=== PATIENT | male | born 1985 | race Caucasian/White ===

== ENCOUNTER 2022-10-14 23:47 | Emergency (ER) | payer BC ==
[2022-10-14] MEDS ORDERED: Orphenadrine 60 MG/2 ML Inj IM ONE (23:54)
[2022-10-14] MEDS ORDERED: Sodium Chloride 0.9% 10 ML Syringe FLUSH PRN (23:54)
[2022-10-15] MEDS ORDERED: Iopamidol 755 Mg/ML 100 ML Bottle IV ONE
== END 2022-10-15 01:55 | disposition other institution (70) ==
LOC: MERGE 23:47 → DL.ED 23:47
DX: K22.9 Disease of esophagus, unspecified (principal)
CPT/HCPCS: 71260; 96372; 99284; J2360; Q9967; J3490

== ENCOUNTER 2022-11-02 06:04 | Day surgery (SDC) | payer BC ==
[~2022-11-02 06:04] MED LIST: Dextrose 5%-0.45% NaCl 1,000 ML IV SCH
[2022-11-02] MEDS ORDERED: Midazolam 1 MG/ML 2 ML SDV ONE (06:12)
[2022-11-02] MEDS ORDERED: fentaNYL 100 MCG/2 ML SDV ONE (06:12)
[2022-11-02] MEDS ORDERED: fentaNYL 100 MCG/2 ML SDV IV ONE ×2 (06:37→06:38)
[2022-11-02] MEDS ORDERED: Midazolam 1 MG/ML 2 ML SDV IV ONE ×2 (06:38→06:39)
== END 2022-11-02 08:30 | disposition home or self-care (01) ==
LOC: DL.ENDO 06:04
PROVIDERS: ATTEND Internal Medicine Gastroenterology
DX: T18.128A Food in esophagus causing other injury, initial encounter (principal); K21.00 Gastro-esophageal reflux disease with esophagitis, without bleeding; K31.89 Other diseases of stomach and duodenum; K22.89 Other specified disease of esophagus; Z98.890 Other specified postprocedural states
CPT/HCPCS: 87077; J2250; J3010; J7042

== ENCOUNTER 2023-01-13 06:30 | Day surgery (SDC) | payer BC ==
[2023-01-13] MEDS ORDERED: Midazolam 1 MG/ML 2 ML SDV ONE (07:37)
[2023-01-13] MEDS ORDERED: fentaNYL 100 MCG/2 ML SDV ONE (07:38)
[2023-01-13] MEDS ORDERED: fentaNYL 100 MCG/2 ML SDV IV ONE ×2 (07:42→07:43)
[2023-01-13] MEDS ORDERED: Midazolam 1 MG/ML 2 ML SDV IV ONE ×2 (07:43→07:44)
== END 2023-01-13 09:25 | disposition home or self-care (01) ==
LOC: DL.ENDO 06:30
PROVIDERS: ATTEND Internal Medicine Gastroenterology
DX: K20.0 Eosinophilic esophagitis (principal); K21.9 Gastro-esophageal reflux disease without esophagitis; Z79.899 Other long term (current) drug therapy
CPT/HCPCS: 43239; J2250; J3010; J7042

== ENCOUNTER 2024-03-24 06:31 | Day surgery (SDC) | payer BC ==
[~2024-03-24 06:31] MED LIST changes: -Dextrose 5%-0.45% NaCl 1,000 ML IV SCH; +Sodium Chloride 0.9% 500 ML IV SCH
[2024-03-24] MEDS ORDERED: Midazolam 1 MG/ML 2 ML SDV IV ONE (06:48)
[2024-03-24] MEDS ORDERED: fentaNYL 100 MCG/2 ML SDV ONE (06:48)
[2024-03-24] MEDS ORDERED: fentaNYL 100 MCG/2 ML SDV IV ONE (06:48)
[2024-03-24] MEDS ORDERED: Midazolam 1 MG/ML 2 ML SDV ONE (06:48)
[2024-03-24] MEDS: Dextrose 5%-0.45% NaCl 1,000 ML IV SCH (07:05)
[2024-03-24] MEDS: fentaNYL 100 MCG/2 ML SDV IV ONE ×2 (07:37)
[2024-03-24] MEDS: Midazolam 1 MG/ML 2 ML SDV IV ONE ×2 (07:38)
== END 2024-03-24 09:30 | disposition home or self-care (01) ==
LOC: DL.ENDO 06:31
PROVIDERS: ATTEND Internal Medicine Gastroenterology
DX: K20.0 Eosinophilic esophagitis (principal); R13.10 Dysphagia, unspecified
CPT/HCPCS: 43239; J2250; J3010; J7799